=== PATIENT | female | born 1990 ===

== ENCOUNTER 2018-03-20 07:13 | Emergency (ER) | payer MEDICAID, OTHER ==
[2018-03-20 07:14] VITALS: BMI 26.5
[2018-03-20 07:23] VITALS: BP 129/89; PULSE 143; RESP 20; O2SAT 100
[2018-03-20 07:45] VITALS: TEMP 98.6
[2018-03-20] MEDS ORDERED: Sodium Chloride 0.9% 1,000 ML IV ONE (07:47)
[2018-03-20] MEDS ORDERED: Albuterol-Ipratrop 3 mg / 0.5 (3 ml) UD IH SCH (08:00)
--- NOTE | 2018-03-20 08:04 | C.PDOC ---
History Of Present Illness 27 y/o female presents to ED with c/o sob since earlier this morning when she woke up. Patient reports she takes Oxycodone x2 daily for orthopedic problems and denies chest pain, cough, fever, chills, nausea, vomiting, leg swelling or any other complaints at this time. Time Seen by Provider: 03/20/18 07:20 Chief Complaint (Nursing): Shortness Of Breath History Per: Patient History/Exam Limitations: no limitations Onset/Duration Of Symptoms: Hrs Current Symptoms Are (Timing): Still Present Past Medical History Reviewed: Historical Data, Nursing Documentation, Vital Signs Vital Signs: Last Vital Signs Temp 98.6 F 03/20/18 07:45 Pulse 143 H 03/20/18 07:17 Resp 20 03/20/18 07:40 BP 129/89 03/20/18 07:17 Pulse Ox 100 03/20/18 08:41 - Medical History PMH: No Chronic Diseases Surgical History: No Surg Hx - [facility] Procedures APPLICATION OF SPLINT (08/31/06) DX ULTRASOUND-THORAX NEC (03/26/13) INJECT/INFUSE ELECTROLYT (12/27/12) INJECT/INFUSE NEC (12/27/12) PERCUTAN NEEDLE BIOPSY OF BREAST (03/26/13) Family History: States: No Known Family Hx - Social History Hx Tobacco Use: No Hx Alcohol Use: No Hx Substance Use: Yes (marijuana) - Immunization History Hx Tetanus Toxoid Vaccination: No Hx Influenza Vaccination: No Hx Pneumococcal Vaccination: No Review Of Systems Constitutional: Negative for: Fever, Chills Cardiovascular: Negative for: Chest Pain Respiratory: Positive for: Shortness of Breath. Negative for: Cough Gastrointestinal: Negative for: Nausea, Vomiting Skin: Negative for: Rash Physical Exam - Physical Exam Appears: Non-toxic, No Acute Distress Skin: Warm, Dry, No Rash Head: Atraumatic, Normacephalic Eye(s): bilateral: Normal Inspection Oral Mucosa: Moist Neck: Supple Cardiovascular: Rhythm Regular, Other (Tachycardic) Respiratory: Normal Breath Sounds, No Rales, No Rhonchi, No Wheezing Gastrointestinal/Abdominal: Soft, No Tenderness, No Guarding, No Rebound Extremity: Normal ROM, No Pedal Edema, Capillary Refill (<2 seconds) Neurological/Psych: Oriented x3, Normal Speech, Normal Cognition ED Course And Treatment - Laboratory Results Result Diagrams: 03/20/18 08:07 03/20/18 08:07 Lab Interpretation: Normal ECG: Interpreted By Me ECG Rhythm: Sinus Tachycardia ECG Interpretation: No Acute Changes Rate From EC O2 Sat by Pulse Oximetry: 100 (RA) Pulse Ox Interpretation: Normal - Radiology CXR: Interpreted by Me CXR Interpretation: Yes: No Acute Disease Progress Note: CXR, EKG, D-dimer, Blood work ordered. Neb treatment administered. Patient refused further treatment and requested discharge. Patient appears anxious. Left before discharge Reassessment Condition: Improved Disposition Counseled Patient/Family Regarding: Studies Performed, Diagnosis, Need For Followup, Rx Given - Disposition Referrals: [facility] [Outside] [facility] [Outside] Disposition: HOME/ ROUTINE Disposition Time: 08:40 Condition: STABLE Additional Instructions: Follow up with PMD for further evaluation Return to ED if any increase symptoms Prescriptions: Albuterol HFA [Ventolin HFA 90 mcg/actuation (8 g)] 2 puff IH [id number] #1 units Instructions: Shortness of Breath (Dyspnea) (DC), Breathing Exercises, Tachycardia (DC) Forms: [employer] (Maori) - POA Present On Arrival: None - Clinical Impression Clinical Impression: Dyspnea, Sinus tachycardia - PA / COMMISSARY HELPER / Resident Statement MD/DO has reviewed & agrees with the documentation as recorded. - Scribe Statement The provider has reviewed the documentation as recorded by the Lindaibjosseline Velez All medical record entries made by the Scribjosseline were at my direction and personally dictated by me. I have reviewed the chart and agree that the record accurately reflects my personal performance of the history, physical exam, medical decision making, and the department course for this patient. I have also personally directed, reviewed, and agree with the discharge instructions and disposition.
[2018-03-20 08:10] LABS: BASO % 0.6 % (0.0-2.0); EOS % 0.1 % (0.0-4.0); HEMOGLOBIN 13.1 g/dL (11.0-16.0); LYMPH # 0.8 K/uL (1.0-4.3); MEAN CELL VOLUME 86.2 fL (81.0-99.0); MEAN CORPUSCULAR HEMOGLOBIN 29.3 pg (27.0-31.0); MEAN PLATELET VOLUME 8.3 fL (7.2-11.7); MONO # 0.4 K/uL (0.0-0.8); NEUT # 4.7 K/uL (1.8-7.0); NEUT % 78.3 % (50.0-75.0); NRBC % 0.1 % (0.0-2.0); RBC 4.47 Mil/uL (3.80-5.20); RED CELL DISTRIBUTION WIDTH 14.5 % (11.5-14.5); WHITE BLOOD COUNT 5.9 K/uL (4.8-10.8)
[2018-03-20] MEDS ORDERED: Sodium Chloride 0.9% 1,000 ML ONE (08:17)
[2018-03-20 08:22] LABS: ALB/GLOB RATIO 1.3 (1.0-2.1); ALBUMIN 4.4 g/dL (3.5-5.0); ALT/SGPT 18 U/L (9-52); AST/SGOT 19 U/L (14-36); BLOOD UREA NITROGEN 10 mg/dL (7-17); CALCIUM 9.3 mg/dl (8.6-10.4); GFR NON-AFRICAN AMERICAN > 60
[2018-03-20 08:24] LABS: SQUAMOUS EPITHIAL < 1 /hpf (0-5); URINE BILIRUBIN NEGATIVE (NEGATIVE); URINE BLOOD 1+ (NEGATIVE); URINE CLARITY Clear (Clear); URINE COLOR Colorless (YELLOW); URINE GLUCOSE (UA) NORMAL (Normal); URINE LEUKOCYTE ESTERASE NEG Leu/uL (Negative); URINE PROTEIN NEGATIVE (NEGATIVE); URINE UROBILINOGEN NORMAL mg/dL (0.2-1.0)
[2018-03-20 08:30] LABS: HCG,QUALITATIVE URINE NEGATIVE (NEGATIVE)
[2018-03-20] MEDS ORDERED: Albuterol-Ipratrop 3 mg / 0.5 (3 ml) UD ONE (08:42)
--- NOTE | 2018-03-20 09:33 | RAD ---
Date of service: 03/20/2018 HISTORY: SOB COMPARISON: No prior. TECHNIQUE: Chest PA and lateral FINDINGS: LUNGS: No active pulmonary disease. PLEURA: No significant pleural effusion identified. No pneumothorax apparent. CARDIOVASCULAR: Normal. OSSEOUS STRUCTURES: No significant abnormalities. VISUALIZED UPPER ABDOMEN: Normal. OTHER FINDINGS: None. IMPRESSION: No active disease.
--- NOTE | 2018-03-22 02:29 | CARD ---
APPROVED REPORT Date of service: 03/20/2018 EKG Measurement Heart [id number] <Conclusion> Sinus tachycardia Possible Left atrial enlargement Borderline ECG
== END 2018-03-20 09:07 | disposition home or self-care (01) ==
LOC: C.ER 07:13
DX: R06.00 Dyspnea, unspecified (principal); R00.0 Tachycardia, unspecified
CPT/HCPCS: 71046; 80053; 81001; 84703; 85025; 85378; 96360; 99285; J7030